=== PATIENT | male | born 1980 | race Caucasian/White ===

== ENCOUNTER 2017-01-12 15:57 | Emergency (ER) | payer OTHER ==
--- NOTE | ~2017-01-12 | ER ---
PATIENT'S NAME: ILA [facility] AGE: 36 Y [address] ROOM: [place] [address] LOCATION: [facility] ADMIT DATE: 01/12/2017 ER/Outpatient Report DISCHARGE DATE: 01/12/2017 FAMILY PHYSICIAN: Sebas Florez MD ATTENDING PHYSICIAN: Jason Kraft Time of Arrival: 1601. Time of Evaluation: 1605. CHIEF COMPLAINT: Left groin pain. HISTORY OF PRESENT ILLNESS: The patient is a 36-year-old male who presents to the emergency department today with chief complaint of left groin pain. He reports this started 14 days prior to arrival. He reports pain is 5/10 in severity. Denies any fevers or chills. Does have some nausea. No vomiting. He is sexually active with one partner and no concern for any STDs. He does report some painful urination. Denies any penile discharge. PAST MEDICAL HISTORY: Epididymitis. PAST SURGICAL HISTORY: None. SOCIAL HISTORY: The patient smokes half pack per day for 15 years. Drinks alcohol occasionally. Denies illicit drug use. ALLERGIES: NO KNOWN DRUG ALLERGIES. MEDICATIONS: Please see list. PRIMARY CARE DOCTOR: Dr. Florez. REVIEW OF SYSTEMS: All systems are reviewed by myself and are negative with the exception of those discussed in HPI and past medical history. PHYSICAL EXAMINATION: VITAL SIGNS: Weight 90.5 kg, blood pressure 135/90, pulse 107, respiratory [facility] 36 [facility] [address] ROOM: [place] [address] LOCATION: [facility] ADMIT DATE: 01/12/2017 ER/Outpatient Report DISCHARGE DATE: 01/12/2017 FAMILY PHYSICIAN: Sebas Florez MD ATTENDING PHYSICIAN: Jason Kraft rate 14, temperature 98.0, oxygen saturation 96% on room air. GENERAL: The patient is a 36-year-old male, appears stated age, in no acute distress at this time. HEENT: Normocephalic, atraumatic. Pupils are equal, round, and reactive to light. NECK: Supple. There is no nuchal rigidity. CARDIOVASCULAR: Tachycardic. No murmurs, rubs, or gallops. LUNGS: Clear to auscultation bilaterally. No wheezes, rales, or rhonchi. ABDOMEN: Soft, nontender, and nondistended. No rebound, rigidity, or guarding. MUSCULOSKELETAL: The patient moves all 4 extremities. Ambulates with steady gait. GENITOURINARY: The patient has a cremasteric reflex intact bilaterally, no tenderness to palpation on the testicle or epididymitis. SKIN: Warm and dry with no rashes or lesions noted. LABORATORY DATA AND X-RAYS: CBC is unremarkable. CMP is unremarkable except for creatinine 1.4. LFTs are normal. Urinalysis shows 10 blood, otherwise normal. Ultrasound is obtained of the testicles, they appear normal. IMPRESSION: 1. Left groin pain, unclear etiology. 2. Initial visit. ED COURSE: The patient brought back to the examination room. Seen and evaluated by myself. Laboratory analysis and imaging are obtained as described above. I have discussed results with the patient. He refused any pain medicine. Unclear as to the exact etiology of the patient's symptoms, I do not feel hernia. The patient is not significantly tender, his ultrasound is normal. No evidence of torsion, good blood flow. No evidence of epididymitis. His urinalysis is unremarkable. I have discussed with him I would like him to follow up with Dr. Florez, his primary care doctor in 2 to 3 days for re- evaluation. I have asked he follows up with Dr. Banerjee. He is to call for an appointment with [facility]. If things do not improve, I have written a prescription for Naprosyn for home. I have discussed return to care instructions including worsening symptoms or any other concerns or return to the emergency department as soon as possible. The patient is agreeable without further questions at the time of disposition. The patient is discharged home in good condition. PATIENT'S NAME: MURRAY THORPE [facility] AGE: 36 Y [address] ROOM: [place] [address] LOCATION: ED ADMIT DATE: 01/12/2017 ER/Outpatient Report DISCHARGE DATE: 01/12/2017 FAMILY PHYSICIAN: Sebas Florez MD ATTENDING PHYSICIAN: Jason Kraft DO KJR/modl /[id number] d: 01/12/178 t: 01/16/17 0629, OUTPATIENT REPORT
[2017-01-12 16:21] LABS: BILIRUBIN URINE NEGATIVE (NEGATIVE); BLOOD URINE 10 /UL (NEGATIVE); COLOR URINE YELLOW (YELLOW); GLUCOSE URINE NEGATIVE (NEGATIVE); KETONE URINE NEGATIVE (NEGATIVE); LEUKOCYTES URINE NEGATIVE /UL (NEGATIVE); NITRITE URINE NEGATIVE (NEGATIVE); PROTEIN URINE NEGATIVE (NEGATIVE); SPEC GRAVITY URINE 1.015 (1.003-1.035); TURBIDITY URINE CLEAR (CLEAR); UROBILINOGEN URINE NORMAL (NORMAL)
[2017-01-12 16:28] LABS: BASOPHIL # 0.1 K/uL (0.0-0.2); BASOPHIL % 0.8 %; EOSINOPHIL # 0.4 K/uL (0.0-0.5); EOSINOPHIL % 3.8 %; HEMATOCRIT 49.9 % (37.0-53.0); HEMOGLOBIN 18.7 g/dL (12.0-17.0); IMMATURE GRANULOCYTE # 0.1 K/uL (0.0-0.3); IMMATURE GRANULOCYTE % 0.5 %; LYMPHOCYTE % 26.4 %; MCHC 37.5 gm/dL (32.0-36.5); MCV 88.2 fl (83.0-98.0); MONOCYTE % 8.3 %; MPV 11.1 fl (9.4-12.4); NEUTROPHIL # (ANC) 6.9 K/uL (1.4-9.0); NEUTROPHIL % 60.2 %; NRBC % 0 /100WBC (0-0.00); PLATELET COUNT 175 K/uL (150-450); RBC 5.66 M/uL (4.00-6.00); RDW-CV 11.9 % (11.9-14.6); WBC 11.5 K/uL (4.0-11.0)
[2017-01-12 16:29] LABS: BACTERIA URINE NEGATIVE (NEGATIVE); EPITHELIAL URINE NEGATIVE #/HPF (NEGATIVE); RBC URINE 0-2 #/HPF (NEGATIVE); WBC URINE 0-2 #/HPF (NEGATIVE)
[2017-01-12 16:46] LABS: ALBUMIN 3.8 gm/dL (3.5-5.0); ANION GAP 13.7 (10.0-19.0); CALCIUM 8.6 mg/dL (8.5-10.5); CREATININE 1.4 mg/dL (0.6-1.3); POTASSIUM 3.7 mMol/L (3.7-5.1); TOTAL BILIRUBIN 0.7 mg/dL (0.0-1.5); TOTAL PROTEIN 7.5 g/dL (6.0-8.4)
== END 2017-01-12 17:09 | disposition disaster alternative care site (69) ==
LOC: GMED 15:57
PROVIDERS: Emergency Medicine
DX: R10.32 Left lower quadrant pain (principal); F17.210 Nicotine dependence, cigarettes, uncomplicated